=== PATIENT | female | born 1970 | race Caucasian/White ===

== ENCOUNTER 2017-06-23 08:21 | Emergency (ER) | payer BC ==
[2017-06-23] MEDS ORDERED: Sodium Chloride 0.9% 10 ML Syringe FLUSH PRN ×2 (09:15→10:06)
[2017-06-23] MEDS ORDERED: Sodium Chloride 0.9% 1,000 ML IV STA (09:15)
[2017-06-23] MEDS ORDERED: Ondansetron 4 MG/2 ML SDV IVPUSH ONE (09:15)
[2017-06-23] MEDS ORDERED: HYDROmorphone 1 MG/ML Syringe IVPUSH ONE (09:17)
--- NOTE | 2017-06-23 09:20 | EDM.PDOC ---
ED HPI GENERAL MEDICAL PROBLEM - General Chief Complaint: Abdominal Pain Stated Complaint: STOMACH PAIN Time Seen by Provider: 06/23/17 09:08 Source of Information: Reports: Patient History Limitations: Reports: No Limitations - History of Present Illness INITIAL COMMENTS - FREE TEXT/NARRATIVE: The patient presents with generalized abdominal pain, nausea, vomiting and diarrhea. This has been an ongoing problems since before February. She saw Dr Ramirez and he removed her gallbladder. She did feel better for awhile. She was then found to have hepatitis C. She saw GI and then infectious disease. She was started on Harvoni for the hepatitis C. She is going to get an EGD and biopsy of her liver in about 2 weeks. She has no fever, chills, cough, congestion, runny nose, chest pain or shortness of breath. She feels bloated at times. Onset: Gradual Duration: Week(s): Location: Reports: Abdomen Severity: Moderate Improves with: Reports: None Worsens with: Reports: None Associated Symptoms: Reports: Nausea/Vomiting. Denies: Chest Pain, Cough, Fever /Chills, Shortness of Breath Abdominal Pain Score (Numeric/FACES): 9 - Related Data Allergies Allergy/AdvReac Type Severity Reaction Status Date / Time Penicillins Allergy Airway Verified 06/23/17 09:02 Tightness Home Meds: Home Meds Ledipasvir/Sofosbuvir [Harvoni 90-400 mg Tablet] 1 tab PO DAILY 06/23/17 [ History] Ondansetron [Zofran ODT] 4 mg PO Q6H PRN #20 tab.dis 06/23/17 [Rx] traMADol HCl [Ultram] 50 - 100 mg PO Q6HR PRN #20 tablet 06/23/17 [Rx] Past Medical History - Past Health History Medical/Surgical History: Denies Medical/Surgical History HEENT History: Reports: 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: Hematologic History: Reports: Anemia, Blood Transfusion(s), Other (See Below) Other Hematologic History: Hep C - Infectious Disease History Infectious Disease History: Reports: Hepatitis C - Past Surgical History GI Surgical History: Reports: Cholecystectomy Female Surgical History: Reports: Section Social & Family History - Family History Family Medical History: Noncontributory - Tobacco Use Smoking Status *Q: Never Smoker - Recreational Drug Use Recreational Drug Use: No ED ROS GENERAL - Review of Systems Review Of Systems: See Below Constitutional: Reports: No Symptoms HEENT: Reports: No Symptoms Respiratory: Reports: No Symptoms Cardiovascular: Reports: No Symptoms Endocrine: Reports: No Symptoms GI/Abdominal: Reports: Abdominal Pain, Diarrhea, Nausea, Vomiting : Reports: No Symptoms ED EXAM, GI/ABD - Physical Exam Exam: See Below Exam Limited By: No Limitations General Appearance: Alert, No Apparent Distress Ears: Normal External Exam Nose: Normal Inspection Throat/Mouth: Normal Inspection Head: Atraumatic, Normocephalic Neck: Normal Inspection Respiratory/Chest: No Respiratory Distress, Lungs Clear, Normal Breath Sounds Cardiovascular: Regular Rate, Rhythm, No Edema, No Murmur GI/Abdominal Exam: Soft, No Organomegaly, No Mass, Tender (Moderate generalized tenderness with some mild distention) Course - Vital Signs Last Recorded V/S: Last Vital Signs Temp 97.5 F 06/23/17 08:55 Pulse 90 06/23/17 08:55 Resp 16 06/23/17 08:55 BP 127/94 H 06/23/17 08:55 Pulse Ox 98 06/23/17 08:55 - Orders/Labs/Meds Orders: Active Orders 24 hr Category Date Time Status Peripheral IV Care [RC] . DIRECTED Care 06/23/17 09:15 Active UA W/MICROSCOPIC [URIN] Stat Lab 06/23/17 13:50 Results Sodium Chloride 0.9% [Saline Flush] Med 06/23/17 09:15 Active 10 ml FLUSH ASDIRECTED PRN Sodium Chloride 0.9% [Saline Flush] Med 06/23/17 10:06 Active 10 ml FLUSH ONETIME PRN ED Antiemetic Medication Reflex [OM.PC] Stat Oth 06/23/17 09:15 Ordered Peripheral IV Insertion Adult [OM.PC] Stat Oth 06/23/17 09:15 Ordered Medication Orders Sodium Chloride (Saline Flush) 10 ml FLUSH ASDIRECTED PRN PRN Reason: Keep Vein Open Last Admin: 06/23/17 10:22 Dose: 10 ml Sodium Chloride (Saline Flush) 10 ml FLUSH ONETIME PRN PRN Reason: IV FLUSH Last Admin: 06/23/17 10:46 Dose: 10 ml Labs: Laboratory Tests 02/01/18 02/01/18 02/01/18 Range/Units 10:15 10:15 10:15 WBC 3.13 L (3.98-10.04) K/mm3 RBC 3.44 L (3.98-5.22) M/mm3 Hgb 10.7 L (11.2-15.7) gm/L Hct 32.4 L (34.1-44.9) % MCV 94.2 (79.4-94.8) fl MCH 31.1 (25.6-32.2) pg MCHC 33.0 (32.2-35.5) g/dl RDW Std Deviation 73.7 H (36.4-46.3) fL Plt Count 50 L (182-369) K/mm3 MPV 10.0 (9.4-12.3) fl Neut % (Auto) 43.4 (34.0-71.1) % Lymph % (Auto) 37.4 (19.3-51.7) % [place] % (Auto) 16.0 H (4.7-12.5) % Eos % (Auto) 1.6 (0.7-5.8) Baso % (Auto) 1.6 H (0.1-1.2) % Neut # (Auto) 1.36 L (1.56-6.13) K/mm3 Lymph # (Auto) 1.17 L (1.18-3.74) K/mm3 [place] # (Auto) 0.50 H (0.24-0.36) K/mm3 Eos # (Auto) 0.05 (0.04-0.36) K/mm3 Baso # (Auto) 0.05 (0.01-0.08) K/mm3 Manual Slide Review Abnormal smear Sodium 140 (136-145) mEq/L Potassium 4.2 (3.5-5.1) mEq/L Chloride 107 (98-107) mEq/L Carbon Dioxide 23 (21-32) mEq/L Anion Gap 14.2 (5-15) BUN 4 L (7-18) mg/dL Creatinine 0.7 (0.55-1.02) mg/dL Est Cr Clr Drug Dosing 94.01 mL/min Estimated GFR (MDRD) > 60 (>60) mL/min BUN/Creatinine Ratio 5.7 L (14-18) Glucose 77 (74-106) mg/dL Calcium 8.6 (8.5-10.1) mg/dL Total Bilirubin 1.3 H (0.2-1.0) mg/dL AST 163 H (15-37) U/L ALT 59 (14-59) U/L Alkaline Phosphatase 182 H (46-116) U/L Total Protein 7.9 (6.4-8.2) g/dl Albumin 2.3 L (3.4-5.0) g/dl Globulin 5.6 gm/dL Albumin/Globulin Ratio 0.4 L (1-2) Lipase 95 (73-393) U/L HCG, Qual Negative (NEGATIVE) Urine Color (Yellow) Urine Appearance (Clear) Urine pH (5.0-8.0) Ur Specific [place] (1.005-1.030) Urine Protein (Negative) Urine Glucose (UA) (Negative) Urine Ketones (Negative) Urine Occult Blood (Negative) Urine Nitrite (Negative) Urine Bilirubin (Negative) Urine Urobilinogen (0.2-1.0) Ur Leukocyte Esterase (Negative) 06/23/17 Range/Units 13:50 WBC (3.98-10.04) K/mm3 RBC (3.98-5.22) M/mm3 Hgb (11.2-15.7) gm/L Hct (34.1-44.9) % MCV (79.4-94.8) fl MCH (25.6-32.2) pg MCHC (32.2-35.5) g/dl RDW Std Deviation (36.4-46.3) fL Plt Count (182-369) K/mm3 MPV (9.4-12.3) fl Neut % (Auto) (34.0-71.1) % Lymph % (Auto) (19.3-51.7) % [place] % (Auto) (4.7-12.5) % Eos % (Auto) (0.7-5.8) Baso % (Auto) (0.1-1.2) % Neut # (Auto) (1.56-6.13) K/mm3 Lymph # (Auto) (1.18-3.74) K/mm3 [place] # (Auto) (0.24-0.36) K/mm3 Eos # (Auto) (0.04-0.36) K/mm3 Baso # (Auto) (0.01-0.08) K/mm3 Manual Slide Review Sodium (136-145) mEq/L Potassium (3.5-5.1) mEq/L Chloride (98-107) mEq/L Carbon Dioxide (21-32) mEq/L Anion Gap (5-15) BUN (7-18) mg/dL Creatinine (0.55-1.02) mg/dL Est Cr Clr Drug Dosing mL/min Estimated GFR (MDRD) (>60) mL/min BUN/Creatinine Ratio (14-18) Glucose (74-106) mg/dL Calcium (8.5-10.1) mg/dL Total Bilirubin (0.2-1.0) mg/dL AST (15-37) U/L ALT (14-59) U/L Alkaline Phosphatase (46-116) U/L Total Protein (6.4-8.2) g/dl Albumin (3.4-5.0) g/dl Globulin gm/dL Albumin/Globulin Ratio (1-2) Lipase (73-393) U/L HCG, Qual (NEGATIVE) Urine Color Yellow (Yellow) Urine Appearance Clear (Clear) Urine pH 6.0 (5.0-8.0) Ur Specific [place] 1.015 (1.005-1.030) Urine Protein Negative (Negative) Urine Glucose (UA) Negative (Negative) Urine Ketones Negative (Negative) Urine Occult Blood Negative (Negative) Urine Nitrite Negative (Negative) Urine Bilirubin Negative (Negative) Urine Urobilinogen 0.2 (0.2-1.0) Ur Leukocyte Esterase Negative (Negative) Meds: Medications Generic Name Dose Route Start Last Admin Trade Name Freq PRN Reason Stop Dose Admin Sodium Chloride 10 ml 06/23/17 09:15 06/23/17 10:22 Saline Flush FLUSH 10 ml ASDIRECTED PRN Administration Keep Vein Open Sodium Chloride 10 ml 06/23/17 10:06 06/23/17 10:46 Saline Flush FLUSH 10 ml ONETIME PRN Administration IV FLUSH Discontinued Medications Generic Name Dose Route Start Last Admin Trade Name Freq PRN Reason Stop Dose Admin Diatrizoate Meglum/Diatrizoate Sod 120 ml 06/23/17 10:46 06/23/17 10:47 Gastrografin 37% PO 06/23/17 10:47 90 ml ONETIME ONE Administration Hydromorphone HCl 1 mg 06/23/17 09:17 06/23/17 10:20 Dilaudid IVPUSH 06/23/17 09:18 1 mg ONETIME ONE Administration Sodium Chloride 1,000 mls @ 1,000 mls/hr 06/23/17 09:15 06/23/17 10:18 Normal Saline IV 06/23/17 10:14 1,000 mls/hr .BOLUS STA Administration Iopamidol 100 ml 06/23/17 10:06 06/23/17 10:46 Isovue-300 (61%) IVPUSH 06/23/17 10:07 100 ml ONETIME ONE Administration Ketorolac Tromethamine 30 mg 06/23/17 13:17 06/23/17 13:44 Toradol IVPUSH 06/23/17 13:18 30 mg ONETIME ONE Administration Metoclopramide HCl 10 mg 06/23/17 11:58 06/23/17 12:03 Reglan IVPUSH 06/23/17 11:59 10 mg ONETIME ONE Administration Ondansetron HCl 4 mg 06/23/17 09:15 06/23/17 10:18 Zofran IVPUSH 06/23/17 09:16 4 mg ONETIME ONE Administration Promethazine HCl 25 mg 06/23/17 13:17 06/23/17 13:47 Phenergan IM 06/23/17 13:18 25 mg ONETIME ONE Administration - Re-Assessments/Exams Free Text/Narrative Re-Assessment/Exam: 06/23/17 14:31 I ordered an IV NS, zofran 4mg IV, dilaudid 1mg IV, labs, UA and a CT of her abdomen and pelvis. Her WBC was a little low at 3.13. Her Hgb was low at 10.7. He platelets are low at 50. Her total bili was elevated at 1.3. Her AST was elevated at 163. Her alk phos was elevated at 182. Her UA shows no UTI. Her CT shows fatty infiltration within the liver. Liver also has the appearance of cirrhosis. Moderate to marked amount of ascites. She still had nausea and some pain so I ordered reglan 10mg IV, toradol 30mg IV and phenergan 25mg IM. I talked to Dr Ortega and he said she is supposed to see Dr Eugene the GI specialist at [place]. I talked with Dr Santos and he wanted him or one of his partners to see him next week. I called the clinic and they had no openings. They will call her with a time to come. Departure - Departure Time of Disposition: 14:35 Disposition: Home, Self-Care 01 Condition: Good Clinical Impression: Abdominal pain Qualifiers: Abdominal location: generalized Qualified Code(s): R10.84 - Generalized abdominal pain Hepatitis C Qualifiers: Viral hepatitis chronicity: unspecified Hepatic coma status: without hepatic coma Qualified Code(s): B19.20 - Unspecified viral hepatitis C without hepatic coma Ascites Qualifiers: Ascites type: other type Qualified Code(s): R18.8 - Other ascites - Discharge Information Prescriptions: traMADol HCl [Ultram] 50 - 100 mg PO Q6HR PRN #20 tablet PRN Reason: Pain Ondansetron [Zofran ODT] 4 mg PO Q6H PRN #20 tab.dis PRN Reason: Nausea\vomiting Instructions: Abdominal Pain, Adult, [id number], Ascites Referrals: Lori White PA-C [Primary Care Provider] - Forms: ED Department Discharge Additional Instructions: Take your medication as prescribed. Take the zofran as needed for nausea or vomiting. Take the ultram as needed for pain. Someone from Dr Eugene's office will call you with a time to come in next week. Please return if you are worse. - My Orders Last 24 Hours: My Active Orders 06/23/17 09:15 Peripheral IV Care [RC] . DIRECTED Sodium Chloride 0.9% [Saline Flush] 10 ml FLUSH ASDIRECTED PRN ED Antiemetic Medication Reflex [OM.PC] Stat Peripheral IV Insertion Adult [OM.PC] Stat 06/23/17 10:06 Sodium Chloride 0.9% [Saline Flush] 10 ml FLUSH ONETIME PRN 06/23/17 13:50 UA W/MICROSCOPIC [URIN] Stat - Assessment/Plan Last 24 Hours: My Active Orders 06/23/17 09:15 Peripheral IV Care [RC] . DIRECTED Sodium Chloride 0.9% [Saline Flush] 10 ml FLUSH ASDIRECTED PRN ED Antiemetic Medication Reflex [OM.PC] Stat Peripheral IV Insertion Adult [OM.PC] Stat 06/23/17 10:06 Sodium Chloride 0.9% [Saline Flush] 10 ml FLUSH ONETIME PRN 06/23/17 13:50 UA W/MICROSCOPIC [URIN] Stat
[2017-06-23] MEDS ORDERED: Iopamidol 612 MG/ML 100 ML Bottle IVPUSH ONE (10:06)
[2017-06-23] MEDS ORDERED: Diatrizoate Meglumine/Diatrizoate Sodium 37% 120 ML Bottle PO ONE (10:46)
[2017-06-23] MEDS ORDERED: Metoclopramide 10 MG/2 ML SDV IVPUSH ONE (11:58)
--- NOTE | 2017-06-23 12:09 | CT ---
CT abdomen and pelvis Technique: Multiple axial sections were obtained from above the dome of the diaphragm inferiorly through the pubic symphysis. Intravenous and oral contrast was utilized. Delayed images were also obtained through the bladder. Comparison: No prior CT abdomen or pelvis study is available. Findings: Fatty infiltration is seen within the liver. Liver appears slightly nodular and small suggesting cirrhosis. Ascites identified within the abdomen and pelvis which is moderate to marked in amount. Slight atelectasis is noted within both lung bases. Spleen appears within normal limits. Small to moderate sized hiatal hernia is noted. Adrenal glands show no nodule. Pancreas is within normal limits. Kidneys show symmetric contrast enhancement without hydronephrosis or mass. Aorta shows no aneurysmal dilatation. No retroperitoneal adenopathy is seen. Surgical clips are seen from prior cholecystectomy. No mesenteric abnormalities are seen. No discrete pelvic mass or adenopathy is seen. Bone window settings were reviewed which appear within normal limits for the patient's age. Small umbilical hernia is seen which shows some extension of fluid into the hernia. Impression: 1. Fatty infiltration within the liver. Liver also has the appearance of cirrhosis. 2. Moderate to marked amount of ascites. 3. Other incidental findings as noted above. Diagnostic code #3
[2017-06-23] MEDS ORDERED: Promethazine 25 MG/ML SDV IM ONE (13:17)
[2017-06-23] MEDS ORDERED: Ketorolac 30 MG/ML SDV IVPUSH ONE (13:17)
== END 2017-06-23 14:45 | disposition home or self-care (01) ==
LOC: JD.ED 08:21
DX: B19.20 Unspecified viral hepatitis C without hepatic coma (principal); R18.8 Other ascites; Z79.899 Other long term (current) drug therapy; Z88.0 Allergy status to penicillin
CPT/HCPCS: 36415; 74177; 74177-26; 80053; 81001; 83690; 84703; 85025; 96361; 96372; 96374; 96375; 99284-25; J1170; J1885; J2405; J2550; J2765; J7040; J7050; Q9963; Q9967

== ENCOUNTER 2021-07-08 13:08 | Emergency (ER) | payer BC ==
[2021-07-08] MEDS ORDERED: Gadobenate Dimeglumine 529 MG/ML 15 ML SDV IVPUSH ONE (15:08)
[2021-07-08] MEDS ORDERED: Sodium Chloride 0.9% 10 ML Syringe FLUSH SCH (15:15)
[2021-07-08] MEDS ORDERED: HYDROmorphone 1 MG/ML Syringe IVPUSH ONE (15:59)
[2021-07-08] MEDS ORDERED: Sodium Chloride 0.9% 10 ML Syringe FLUSH PRN (16:12)
[2021-07-08] MEDS ORDERED: Sodium Chloride 0.9% 10 ML Syringe FLUSH ONE (16:18)
[2021-07-08] MEDS ORDERED: Iopamidol 612 MG/ML 100 ML Bottle IVPUSH ONE (16:18)
[2021-07-08 16:50] LABS: CORONAVIRUS COVID-19 NAA NEGATIVE (NEGATIVE)
== END 2021-07-08 19:25 | disposition home or self-care (01) ==
LOC: JD.ED 13:08 → SUPCPDRO 13:08 → JD.ED 19:25
DX: S32.050A Wedge compression fracture of fifth lumbar vertebra, initial encounter for closed fracture (principal); K21.9 Gastro-esophageal reflux disease without esophagitis; Z88.0 Allergy status to penicillin; Z79.899 Other long term (current) drug therapy; Z20.822 Contact with and (suspected) exposure to COVID-19; X50.0XXA Overexertion from strenuous movement or load, initial encounter
CPT/HCPCS: 0240U; 72158; 74177; 96374; 99284; A9577; J1170; Q9967

== ENCOUNTER 2021-07-13 13:30 | Emergency (ER) | payer BC ==
[2021-07-13] MEDS ORDERED: Ketorolac 60 MG/2 ML SDV IM ONE (13:54)
[2021-07-13] MEDS ORDERED: HYDROmorphone 1 MG/ML Syringe IM ONE (13:54)
== END 2021-07-13 15:45 | disposition home or self-care (01) ==
LOC: JD.ED 13:30 → SUPCPDRO 13:30 → JD.ED 15:45
DX: S32.050A Wedge compression fracture of fifth lumbar vertebra, initial encounter for closed fracture (principal); K21.9 Gastro-esophageal reflux disease without esophagitis; Z88.0 Allergy status to penicillin; Z79.899 Other long term (current) drug therapy; X50.0XXA Overexertion from strenuous movement or load, initial encounter
CPT/HCPCS: 96372; 99284; J1170; J1885

== ENCOUNTER 2021-11-07 20:57 | Emergency (ER) | payer BC | END 2021-11-07 23:15 | disposition home or self-care (01) | LOC: JD.ED 20:57 | DX: R18.8 Other ascites (principal); R06.02 Shortness of breath; K21.9 Gastro-esophageal reflux disease without esophagitis; Z88.0 Allergy status to penicillin; Z79.899 Other long term (current) drug therapy; Z86.16 Personal history of COVID-19 | CPT/HCPCS: 36415; 71045; 71045-26; 80053; 85025; 85610; 99285-25 ==

== ENCOUNTER 2021-11-09 12:48 | Emergency (ER) | payer BC ==
[2021-11-09] MEDS ORDERED: Sodium Chloride 0.9% 10 ML Syringe FLUSH PRN (14:05)
[2021-11-09] MEDS: Albumin 25% 12.5 GM in Premix Bag 1 BAG IV SCH ×4 (16:45→18:24)
== END 2021-11-09 19:20 | disposition home or self-care (01) ==
LOC: JD.ED 12:48
DX: R18.8 Other ascites (principal); K21.9 Gastro-esophageal reflux disease without esophagitis; D64.9 Anemia, unspecified; Z88.0 Allergy status to penicillin
CPT/HCPCS: 36415; 49083; 76705; 80053; 81001; 82945; 83735; 84157; 85025; 85610; 86140; 87070; 87075; 87205; 89050; 96365; 96366; 99284; J3490; P9047

== ENCOUNTER 2022-06-03 15:23 | Emergency (ER) | payer BC ==
[2022-06-03] MEDS ORDERED: Metoclopramide 10 MG/2 ML SDV IVPUSH ONE (16:18)
[2022-06-03] MEDS ORDERED: HYDROmorphone 0.5 MG/0.5 ML Syringe IVPUSH ONE ×2 (16:18→19:39)
[2022-06-03] MEDS ORDERED: Dextrose 5%-0.9% NaCl 1,000 ML IV SCH (16:30)
[2022-06-03 18:51] LABS: CORONAVIRUS COVID-19 NAA NEGATIVE (NEGATIVE)
[2022-06-03] MEDS ORDERED: cefTRIAXone 2 GM in Sodium Chloride 0.9% 100 ML IV ONE (19:35)
== END 2022-06-03 20:33 ==
LOC: JD.ED 15:23
DX: S72.001A Fracture of unspecified part of neck of right femur, initial encounter for closed fracture (principal); S01.01XA Laceration without foreign body of scalp, initial encounter; S80.811A Abrasion, right lower leg, initial encounter; K74.69 Other cirrhosis of liver; E03.9 Hypothyroidism, unspecified; D64.9 Anemia, unspecified; M25.511 Pain in right shoulder; K21.9 Gastro-esophageal reflux disease without esophagitis; Z88.0 Allergy status to penicillin; Z79.899 Other long term (current) drug therapy; Z20.822 Contact with and (suspected) exposure to COVID-19; W18.30XA Fall on same level, unspecified, initial encounter; Y92.009 Unspecified place in unspecified non-institutional (private) residence as the place of occurrence of the external cause
CPT/HCPCS: 0241U; 36415; 72170; 73552; 80053; 81001; 83735; 83880; 84443; 85025; 85610; 85730; 86140; 86850; 86900; 86901; 96361; 96365; 96375; 96376; 99285; J0696; J1170; J2765; J7042

== ENCOUNTER 2022-09-30 14:43 | Emergency (ER) | payer BC ==
[2022-09-30] MEDS ORDERED: Ketorolac 30 MG/ML SDV IM ONE (15:39)
[2022-09-30] MEDS ORDERED: Acetaminophen/HYDROcodone 325-5 MG Tab PO ONE (15:39)
== END 2022-09-30 17:55 | disposition home or self-care (01) ==
LOC: JD.ED 14:43
DX: M25.512 Pain in left shoulder (principal); K21.9 Gastro-esophageal reflux disease without esophagitis; Z88.0 Allergy status to penicillin; Z79.899 Other long term (current) drug therapy; Z86.16 Personal history of COVID-19
CPT/HCPCS: 96372; 99283; A9270; J1885